=== PATIENT | female | born 1960 | race African-American/Black ===

== ENCOUNTER 2018-09-23 05:39 | Inpatient (IN) ==
[2018-09-23] MEDS ORDERED: Sodium Chlor 0.9% Inj 73.07 ML, Ropivacaine 0.5% PF Inj 24.63 ML, Ketorolac Inj 30 MG, ... P-ARTICULR ONE ×5 (06:30)
[2018-09-23] MEDS ORDERED: Chlorhexidine 4% Topical 120 APPLIC/120 ML Bottle TOPICAL SCH (06:30)
[2018-09-23] MEDS ORDERED: Dexamethasone Inj 20 MG/5 ML Vial ONE (06:41)
[2018-09-23] MEDS ORDERED: Metoprolol Tartrate 25 MG Tablet PO ONE (06:45)
[2018-09-23] MEDS ORDERED: Sodium Chlor 0.9% Inj 500 ML IV.CONT ONE (06:45)
[2018-09-23] MEDS ORDERED: Chlorhexidine Gluconate 2% 1 Pack (2 Cloths) TOPICAL ONE (06:45)
[2018-09-23] MEDS ORDERED: TRANEXAMIC ACID IV.SIG SCH ×2 (07:00→11:30)
[2018-09-23] MEDS ORDERED: SODIUM CHLOR 0.9% IV.SIG SCH ×2 (07:00→11:30)
[2018-09-23] MEDS ORDERED: ceFAZolin 2 GM Premix Inj 2 GM/50 ML PIGGYBACK IV.SIG SCH (07:00)
[2018-09-23] MEDS ORDERED: Vancomycin Inj 1,000 MG in Sodium Chlor 0.9% Inj 250 ML IV.SIG SCH (07:00)
--- NOTE | 2018-09-23 07:03 | P.DCO ---
- Physical Therapy Physical Therapy: Gait training, Transfer training, bed to chair Knee: Total knee Left Lower Extremity Weight Bearing: Weight bearing as tolerated Left Lower Extremity Range of Motion: Active ROM - Nursing Dressing changes: Do not change dressing Additional instructions: First dressing change in the office - Certification Need for Home Health services: I have seen patient Lila Yañez on 09/23/18. My clinical findings support the need for the requested home health care services because: Need for Home Health Services: Limited ability to care for self, High risk of falls Homebound Certification: I certify that my clinical findings support that this patient is homebound because: Homebound Certification: Post-op weakness, Unsteady gait/balance
[2018-09-23] MEDS ORDERED: fentaNYL Citrate Inj 250 MCG/5 ML Ampul ONE (07:07)
[2018-09-23] MEDS ORDERED: Bupivacaine Liposomal PF 1.3% Inj 20 ML Vial ONE (07:26)
[2018-09-23] MEDS ORDERED: Bupivacaine PF 0.25% Inj 30 ML Vial ONE (07:27)
[2018-09-23] MEDS ORDERED: Aluminum/Magnesium/Simethacone Susp 30 ML UDC PO PRN (10:09)
[2018-09-23] MEDS ORDERED: Bisacodyl 10 MG Supp RECTAL PRN (10:09)
[2018-09-23] MEDS ORDERED: Morphine Inj 4 MG/ML Vial IV.PUSH PRN (10:09)
[2018-09-23] MEDS ORDERED: Zolpidem Tartrate 5 MG Tablet PO PRN (10:09)
[2018-09-23] MEDS ORDERED: Post-op Orders (for Pharmacy) OTHER STA (10:09)
--- NOTE | 2018-09-23 10:12 | P.OP ---
- Preoperative Diagnosis (1) Primary localized osteoarthritis of left knee - Postoperative Diagnosis (1) Primary localized osteoarthritis of left knee Date of procedure: 09/23/18 Procedure: Left total knee arthroplasty Anesthesia: GETA, [facility] Surgeon: Hawk Kirkland MD Video Game Script Writer: SARIAH Reed The surgical procedure was assisted by my Advanced Registered Nurse Practitioner. My ORDER DESK CALLER presence was necessary throughout this case for the manipulation and positioning of the surgical extremity. My ORDER DESK CALLER was assisting me throughout the duration of this procedure. The skill set of an Advance Registered Nurse Practitioner was medically necessary to complete this procedure. During the surgical case, the rn surgical was working at the back table and the Advance Registered Nurse Practitioner was directly assisting me. Operation and Findings: IMPLANTS: DePuy Attune: Patella: size 32. Femur, posterior stabilized size 5 narrow. Tibia, rotating platform size 3. Tibial insert, rotating platform, posterior stabilized size 6 mm thickness. ESTIMATED BLOOD LOSS: 100 cc TOURNIQUET TIME: 48 minutes at 250 mmHg pressure. JUSTIFICATION FOR PROCEDURE: The patient has end-stage osteoarthritis to the knee. There is an attached conservative measures pathway form in the chart that describes the nonoperative measures that were undertaken prior to consideration of surgical management. The patient understood the risks and benefits of surgical management. See my office notes for further details PROCEDURE: The patient was brought back to the operative theatre. Adequate anesthesia was obtained. The patient received intravenous vancomycin and Ancef. The lower extremity was prepped and draped in the usual sterile fashion.The leg was exsanguinated, the tourniquet was raised. A standard anterior incision was performed followed by medial parapatellar arthrotomy was performed. End-stage arthritis was identified. Osteotomy of the patella was performed. We drilled holes for the patella. We trialed the patella component. We placed an intramedullary guide into the distal femur. We ultimately resected 13 mm off of the distal femur in 5 degrees of valgus. The remnants of the ACL and PCL were resected. Osteotomy of the proximal tibia was performed, resecting 7 mm off of the medial side. This was done with 3 degrees of posterior slope using an extramedullary guide. The distal end of the guide was placed in the mid aspect of the ankle. The femur was sized, and four chamfer cuts were completed in 3 of external rotation. We then cut the central box in the distal femur to replace the PCL. We resected the remnants of the menisci and removed osteophytes off of the femur and tibia. We then trialed the knee. We punched the tibia for the keel, and then used standard technique to cement in components. Excess cement was removed. We trialed the knee again and the final polyethylene thickness was chosen to provide extension to 0 degrees, and flexion of 140 degrees to gravity. The ligaments were appropriately balanced. Lateral release was necessary to obtain excellent patellofemoral tracking. The tourniquet was released and adequate hemostasis was obtained. An intra- articular injection of a ropivacaine cocktail was injected. The posterior knee was inspected for excess cement, which was removed. The final polyethylene was put into position after thorough irrigation. We then closed deep fascia with a #2 Stratafix followed by skin with 2-0 Vicryl followed by Dermabond dressing. Postop plan is to weight-bear as tolerated. DVT prophylaxis will be performed with SCDs, JIHAN hose, early mobilization, and aspirin.
[2018-09-23] MEDS ORDERED: *morphine SULFATE 4 MG/ML PERIprocedure ONLY ONE ×3 (10:57→11:33)
[2018-09-23] MEDS: Sod Chloride 0.9% Inj 1,000 ML IV.CONT SCH (11:00)
--- NOTE | 2018-09-23 11:05 | XR ---
EXAM DATE: 09/23/2018 11:02 AM EST AGE/SEX: 57 years / Female INDICATIONS: Post op left total knee. CLINICAL DATA: This is the patient's initial encounter. Patient reports that signs and symptoms have been present for 1 day and indicates a pain score of 0/10. MEDICAL/SURGICAL HISTORY: None. None. COMPARISON: No prior exams available for comparison. FINDINGS: AP and lateral views of the knee following arthroplasty reveals a prosthesis in anatomic alignment. F racture is not appreciated. Air is present within the joint CONCLUSION: Status post total knee arthroplasty. Nba Muñoz MD FACR Electronically signed by: Nba Muñoz MD Board Certified Radiologist 09/23/2018 11:03 AM EST
[2018-09-23] MEDS ORDERED: *Promethazine Inj 25 MG/ML Vial PERIprocedural use ONLY ONE (11:38)
[2018-09-23] MEDS: ceFAZolin 1 GM Premix Inj 1 GM/50 ML PIGGYBACK IV.SIG SCH ×2 (14:10→20:10)
[2018-09-23 14:23] VITALS: RESP 18
[2018-09-23] MEDS: Multivitamin/Minerals Therapeutic Tablet PO SCH (20:11)
[2018-09-23] MEDS: Senna/Docusate Sodium 8.6/50 MG Tablet PO SCH (20:11)
[2018-09-24] MEDS: ceFAZolin 1 GM Premix Inj 1 GM/50 ML PIGGYBACK IV.SIG SCH (01:10)
[2018-09-24] MEDS: Sod Chloride 0.9% Inj 1,000 ML IV.CONT SCH ×2 (04:42→13:44)
[2018-09-24 05:58] LABS: Hemoglobin 11.6 gm/dL (11.6-15.3)
--- NOTE | 2018-09-24 07:40 | P.PNOP ---
Subjective Interval history: The patient is resting comfortably in bed with minimal pain to the left knee. The patient is planning to go to a [place] [facility] facility for rehabilitation postoperatively. Physical Exam Vital signs: Vital Signs 09/23/18 10:37 09/23/18 11:00 09/23/18 11:15 Temperature 97.4 F L Pulse Rate 95 H 85 84 Respiratory Rate 20 18 16 Blood Pressure 139/89 131/86 131/86 Pulse Oximetry 100 100 100 09/23/18 11:31 09/23/18 11:50 09/23/18 12:30 Temperature 98.0 F Pulse Rate 83 85 85 Respiratory Rate 20 20 20 Blood Pressure 142/88 H 160/92 H 160/97 H Pulse Oximetry 100 100 100 09/23/18 13:00 09/23/18 14:00 09/23/18 15:00 Temperature 97.6 F Pulse Rate 85 84 87 Respiratory Rate 16 18 18 Blood Pressure 175/96 H 155/81 H 147/87 H Pulse Oximetry 100 100 100 09/23/18 16:00 09/23/18 17:44 09/23/18 19:00 Temperature 97.2 F L 98.0 F Pulse Rate 84 107 H Respiratory Rate 18 18 18 Blood Pressure 141/74 H 121/79 Pulse Oximetry 95 100 09/23/18 23:02 09/24/18 04:24 Temperature 98.1 F 97.8 F Pulse Rate 76 89 Respiratory Rate 18 18 Blood Pressure 154/74 H 127/62 Pulse Oximetry 96 96 Intake & Output 09/23/18 09/24/18 09/24/18 18:59 06:59 18:59 Intake Total 1150 / 1150 580 / 580 Output Total 125 / 125 Balance 1025 / 1025 580 / 580 Weight 76.8 kg Intake: IV 50 / 50 100 / 100 Ancef 1 GM Premix Inj 1 gm In 50 / 50 100 / 100 50 ml @ 100 mls/hr IV.SIG Q6H [facility] Rx#:[id number] Oral 500 / 500 480 / 480 Anesthesia Amount 600 / 600 Output: Urine 100 / 100 Estimated Blood Loss 25 / 25 Other: # Voids 1 2 Date of Last Bowel Movement 09/22/18 # Bowel Movements 0 Narrative: The patient's dressing is clean, dry, and intact. EHL/TA/G are intact. 2+ pedal pulse. The patient's calf is soft and nontender. Sensation is intact to light touch distally. Results - Labs CBC & Chem 7: 09/24/18 05:15 Laboratory Results - last 24 hr 09/24/18 05:15 Hgb 11.6 Hct 35.0 - Imaging Impressions Knee X-Ray 09/23/18 10:08 CONCLUSION: Status post total knee arthroplasty. Nba Muñoz MD FACR - Procedures Left total knee arthroplasty Assessment and Plan - Problem List (1) Status post total knee replacement, left Code(s): Z96.652 - Presence of left artificial knee joint Status: Acute (2) Primary localized osteoarthritis of left knee Code(s): M17.12 - Unilateral primary osteoarthritis, left knee Status: Acute - Assessment and Plan POD #1: Left total knee arthroplasty 1. Weightbearing as tolerated on left lower extremity. 2. Aspirin 81 mg twice daily for DVT prophylaxis. 3. Ice as needed for swelling. 4. Stable per ortho for [place] [facility] on Friday or Friday. 5. The patient will follow up with Dr. Kirkland and/or SARIAH Odonnell as previously scheduled.
[2018-09-24] MEDS ORDERED: Dexamethasone Inj 20 MG/5 ML Vial IV.PUSH ONE (08:00)
[2018-09-24] MEDS: Senna/Docusate Sodium 8.6/50 MG Tablet PO SCH (08:37)
[2018-09-24] MEDS: Multivitamin/Minerals Therapeutic Tablet PO SCH (08:37)
[2018-09-24] MEDS ORDERED: amLODIPine 10 MG Tablet PO SCH (09:00)
[2018-09-24 13:57] VITALS: BP 142/79; PULSE 107; TEMP 97.9; O2SAT 96
--- NOTE | 2018-09-25 13:50 | P.DS ---
Date of admission: 09/23/18 05:39 Primary care physician: Janes Nixon MD Attending physician on discharge: Hawk Kirkland Anticipated date of discharge: 09/24/18 Brief History from admission: The patient was admitted to the hospital for severe osteoarthritis of the left knee to have a left total knee arthroplasty. DS: Diagnosis - Discharge Diagnosis (1) Status post total knee replacement, left Status: Acute (2) Primary localized osteoarthritis of left knee Status: Acute DS: Medications - Discharge Medications Prescriptions: aspirin [Adult Aspirin Regimen] 81 mg PO BID 30 Days #60 tab hydrocodone-acetaminophen [[place]] 1 - 2 tab PO Q4-6H #50 tab DS: Summary Hospital Course: The patient was admitted to the hospital for severe osteoarthritis of the left knee to have a left total knee arthroplasty. The patient's surgery went well with no complication. The patient is on a [regular] diet. The patient's DVT prophylaxis includes use of aspirin 81 mg twice daily. The patient is weightbearing as tolerated. The patient was discharged to [facility] and will follow up in the office with Dr. Kirkland and/or SARIAH Odonnell as previously scheduled. - Time Spent with Patient Total time spent providing and/or coordinating discharge services: Greater than 30 minutes - Quality: VTE Deep Vein Thrombosis/Pulmonary Embolism Present on Admission: No Exam Vital signs: Intake & Output 09/24/18 09/25/18 09/25/18 18:59 06:59 18:59 Intake Total 800 / 800 Balance 800 / 800 Intake: IV 800 / 800 NS Inj 1,000 ML @ 80 mls/hr IV. 800 / 800 CONT .[id number] [facility] Rx#:[id number] Narrative: The patient's dressing is clean, dry, and intact. EHL/TA/G are intact. 2+ pedal pulse. The patient's calf is soft and nontender. Sensation is intact to light touch distally. Results Procedures completed during hospitalization: Left total knee arthroplasty - Impressions ITS Impressions Knee X-Ray 09/23/18 10:08 CONCLUSION: Status post total knee arthroplasty. Nab Muñoz MD FACR Discharge Plan - Discharge Disposition Patient Disposition: 03 Discharge to SNF - Discharge Condition Condition: Stable - Discharge Order Discharge Orders: Discharge Order (Routine); Ordered 09/23/18 Ordered By: Bernardo Jerome - Discharge Details Anticipated Discharge Date: 09/26/18 - Physicians Team Primary Care Provider: Janes Nixon Attending Provider: Hawk Kirkland Other Providers: Viraj Allen - Rxs /Orders / Referrals /Forms Prescriptions: New aspirin [Adult Aspirin Regimen] 81 mg Tablet,Delayed Release (Dr/Ec) 81 mg PO BID 30 Days Qty: 60 RF: 0 hydrocodone-acetaminophen [[place]] 5-325 mg Tablet 1 - 2 tab PO Q4-6H Qty: 50 RF: 0 Continue amlodipine 10 mg Tablet 10 mg PO DAILY simvastatin 40 mg Tablet 40 mg PO QPM Discontinued diclofenac sodium 75 mg Tablet,Delayed Release (Dr/Ec) 75 mg PO DAILY Ambulatory Orders / Order Sets / DME: Adjustable Commode 3-in-1 (1 each) (Routine) Location: Determined by Patient Ordered By: Bernardo Jerome CPM - Continuous Passive Motion Machine (1 each) (Routine) Location: Determined by Patient Ordered By: Bernardo Jerome Walker With Front Wheels (1 each) (Routine) Location: Determined by Patient Ordered By: Bernardo Jerome Referrals: Hawk Kirkland MD [Physician] - See Instructions (F/U in the office with Dr. Kirkland or Guero Jerome APRN as previously scheduled ) Janes Nixon MD [Primary Care Provider] - See Instructions - Discharge Instructions Patient Printed Instructions: Hydrocodone/Acetaminophen (By mouth), Aspirin ( By mouth), How to Use an Incentive Spirometer (DC), How to Choose and Use a Walker (GEN), Continuous Passive Motion Machine (DC), Knee Replacement (DC) Additional Instructions: Full weight bearing - Post Discharge Care Plan Care Plan Goals: Discharge Care Plan Goals for Total Knee Replacement You have undergone knee replacement surgery. Your doctor replaced your painful joint with an artificial joint to relieve pain and restore movement. Here are some goals to help you heal well. Directions to Meet your Goals: 1. Activity & Exercises: * Take pain medicine as directed by your doctor. * Sit in chairs with arms. The arms make it easier for you to stand up or sit down. * Dont sit for more than 30 to 45 minutes at one time. * Nap if you are tired, but dont stay in bed all day. * Sleep with a pillow under your ankle, not your knee. Be sure to change the position of your leg during the night. * Wear the support stockings you were given in the hospital as directed by your surgeon. 2. Prevent Falls/Injury: The marie to successful recovery is movement with walking and exercising your knee as directed by your doctor. * Arrange your household to keep the items you need handy. Keep everything else out of the way. * Remove items that may cause you to fall, such as throw rugs and electrical cords. * Use nonslip bath mats, grab bars, an elevated toilet seat, and a shower chair in your bathroom * Sit on a shower stool or chair when you shower to keep from falling. * Until your balance, flexibility, and strength improve, use a cane, crutches, a walker, handrails, or someone to help you. * Keep your hands free by using a backpack, keenan pack, apron, or pockets to carry things * Walk up and down stairs with support. Try one step at a time. Use the railing if possible. * Dont drive until your doctor says its OK. * Dont drive while you are taking opioid pain medicine. 3. Precautions: * Prevent infection. Any infection will need to be treated immediately. Call your doctor right away if you think you might have an infection. * Tell your dentist that you have an artificial joint and take antibiotics as prescribed before any dental work. * Tell all your healthcare providers about your artificial joint before any medical procedure. * Maintain a healthy weight. Get help to lose any extra pounds. Added body weight puts stress on the knee. * Your medications may include blood-thinning medicine to prevent blood clots or antibiotics to prevent infection-prevent any falls or cuts 4. Incision Care: * Prevent infection by washing your hands often. If an infection occurs, it will need to be treated right away. * Call your doctor right away if you think you may have an infection. Symptoms include a fever or an incision that leaks white, green, or yellow fluid. * Don't soak your incision in water until your doctor says its OK. This means no hot tubs, bathtubs, or swimming pools. * Follow your doctor's instructions for changing the dressing. * Dont rub the incision, or apply creams or lotions to it. * If you notice any redness or drainage around the bandage site, contact your surgeon's office immediately. 5. Follow-Up: Do Not miss your follow-up appointment. Keep up with all your appointments and yearly check ups When to call your doctor: Call your doctor right away if you have: Fever of 100.4F (38C) or higher, or as directed by your doctor Shaking chills Stiffness, or inability to move the knee Increased swelling in your leg Increased redness, tenderness, or swelling in or around the knee incision Drainage from the knee incision Increased knee pain Call 911: Call 911 right away if you have: Chest pain Shortness of breath Any pain or tenderness in your calf
== END 2018-09-24 16:24 ==
LOC: HSDI 05:39 → N06 15:39
PROVIDERS: ADMIT Orthopaedic Surgery; ATTEND Orthopaedic Surgery